=== PATIENT | male | born 1935 | race Caucasian/White ===

== ENCOUNTER 2017-06-14 19:15 | Emergency (ER) | payer MEDICARE, OTHER ==
[2017-06-14 19:25] VITALS: BP 188/85
[2017-06-14] MEDS ORDERED: Acyclovir* 400 MG TAB PO ONE (22:27)
--- NOTE | 2017-06-14 22:29 | ED ---
Skin Complaint - HPI Summary HPI Summary: 82M presents with rash on right flank for a day. It started as a small area and has since spread. He states that he has minimal pain only when it is touched. He denies any new product. He states that he has a vascular rash on his leg. He denies any fever. - History of Current Complaint Chief Complaint: EDRashSkinAbscess Time Seen by Provider: 06/14/17 22:07 Stated Complaint: RASH Pain Intensity: 0 - Allergy/Home Medications Allergies/Adverse Reactions: Allergies Allergy/AdvReac Type Severity Reaction Status Date / Time No Known Allergies Allergy Verified 03/26/14 15:33 PMH/Surg Hx/FS Hx/Imm Hx Endocrine/Hematology History: Reports: Hx Anticoagulant Therapy - plavix, Hx Diabetes, Hx Thyroid Disease Cardiovascular History: Denies: Hx Hypercholesterolemia, Hx Hypertension Respiratory History: Reports: Other Respiratory Problems/Disorders - HX OF PNEUMONIA Denies: Hx Asthma, Hx Chronic Obstructive Pulmonary Disease (COPD) Neurological History: Reports: Hx Dementia Infectious Disease History: No Infectious Disease History: Denies: Traveled Outside the [place] in Last 30 Days - Family History Known Family History: Negative: Cardiac Disease, Hypertension, Diabetes - Social History Alcohol Use: None Substance Use Type: Reports: None Smoking Status (MU): Former Smoker Review of Systems Negative: Fever Negative: Chest Pain Negative: Shortness Of Breath Positive: Rash All Other Systems Reviewed And Are Negative: Yes Physical Exam Triage Information Reviewed: Yes Vital Signs On Initial Exam: Initial Vitals Temp Pulse Resp BP Pulse Ox 97.9 F 97 16 188/85 93 06/14/17 19:22 06/14/17 19:22 06/14/17 19:22 06/14/17 19:22 06/14/17 19:22 Vital Signs Reviewed: Yes Appearance: Positive: Well-Appearing Skin: Positive: Warm, Dry, Other - vesicular rash on one of the dermatome on right side of back to front Head/Face: Positive: Normal Head/Face Inspection Eyes: Positive: Normal, EOMI, DENAE, Conjunctiva Clear ENT: Positive: Normal ENT inspection, Pharynx normal, TMs normal Respiratory/Lung Sounds: Positive: Clear to Auscultation, Breath Sounds Present Cardiovascular: Positive: Normal, RRR Diagnostics - Vital Signs Vital Signs Temp Pulse Resp BP Pulse Ox 06/14/17 19:22 97.9 F 97 16 188/85 93 - Laboratory Lab Statement: Any lab studies that have been ordered have been reviewed, and results considered in the medical decision making process. Course/Dx - Course Course Of Treatment: 82M presents with rash on right flank for a day. It started as a small area and has since spread. He states that he has minimal pain only when it is touched. He denies any new product. He states that he has a vascular rash on his leg. He denies any fever. on exam has vesicular rash on one of the dermatome on right side of back to front consistent with shingles. will treat with valtrex and told to follow up with pcp. patient understands and agrees with plan. - Differential Diagnoses - Skin Complaint Differential Diagnoses: Cellulitis, Contact Dermatitis, Varicella Zoster - Diagnoses Provider Diagnoses: Shingles Discharge - Discharge Plan Condition: Good Disposition: HOME Prescriptions: ValACYclovir (*) [Valtrex 1 GM(*)] 1 gm PO TID #20 tab Patient Education Materials: Shingles (ED) Referrals: Robin Cerda MD [Primary Care Provider] - Additional Instructions: Take Valtrex three times a day for 7 days Follow up with primary within a week Return to ED if develop any new or worsening symptoms
== END 2017-06-14 22:50 | disposition home or self-care (01) ==
LOC: ED 19:15
DX: B02.9 Zoster without complications (principal); R21 Rash and other nonspecific skin eruption; Z87.891 Personal history of nicotine dependence
CPT/HCPCS: 99282; A9270-GY

== ENCOUNTER 2018-02-15 16:38 | Inpatient (IN) | payer MEDICARE, OTHER ==
[2018-02-15 17:36] LABS: INR 1.17 (0.77-1.02)
[2018-02-15 17:37] LABS: ABS Basophils 0.1 10^3/ul (0-0.2); ABS Eosinophils 0 10^3/ul (0-0.6); ABS Lymphocytes 1.3 10^3/ul (1.0-4.8); ABS Monocytes 6.5 10^3/ul (0-0.8); ABS Neutrophils 6.4 10^3/ul (1.5-7.7); ABS Nucleated RBC 0 10^3/ul; Hematocrit 40 % (42-52); Hemoglobin 13.6 g/dl (14.0-18.0); Mean Corpuscular HGB Conc 34 g/dl (31-36); Mean Corpuscular Hemoglobin 32 pg (27-31); Mean Corpuscular Volume 93 fL (80-94); Mean Platelet Volume 9.6 um3 (7.4-10.4); Nucleated Red Blood Cells % 0; Platelet Count 78 10^3/ul (150-450); Red Blood Count 4.24 10^6/ul (4.0-5.4); Red Cell Distribution Width 15 % (10.5-15); White Blood Count 14.4 10^3/ul (3.5-10.8)
--- NOTE | 2018-02-15 17:45 | RAD ---
Indication: Confusion, diabetes. CT brain was performed without IV contrast. Ventricular structures are midline. No midline shift is noted. Central and cortical atrophy is noted. There is no evidence of intracranial mass or hemorrhage. No other high or low density lesions are identified. Mastoid air cells and paranasal sinuses are otherwise unremarkable. IMPRESSION: Atrophy. No evidence of intracranial mass or hemorrhage is noted
--- NOTE | 2018-02-15 17:53 | RAD ---
Indication: Confusion, altered mental status. Single frontal view of the chest performed at 1747 hours was reviewed. Comparison is made with previous exam dated January 14, 2018. No mediastinal shift is noted. Right basilar density is noted may represent atelectasis. Left lung field is clear. IMPRESSION: LIKELY RIGHT BASILAR ATELECTASIS. NO PNEUMONIA IS NOTED.
[2018-02-15 18:40] LABS: Monocytes % 29 % (0-7)
[2018-02-15 19:26] LABS: Urine Appearance Clear; Urine Blood 1+ (Negative); Urine Color Yellow; Urine Ketones Negative (Negative); Urine Protein 2+(100 mg/dL) (Negative); Urine Specific Gravity 1.019 (1.010-1.030); Urine Urobilinogen Negative (Negative)
[2018-02-15] MEDS ORDERED: cefTRIAXone 1 GM IV - ED ONCE IVPB STA ×2 (21:08)
[2018-02-15] MEDS ORDERED: Albuterol 2.5 MG/3 ML NEB.SOL* (0.083%) INH PRN (21:11)
[2018-02-15] MEDS ORDERED: cefTRIAXone(*) 1 GM ADVAN/BAG ONE (21:11)
[2018-02-15] MEDS ORDERED: Azithromycin IV* 500 MG ADVAN VIAL/BAG IVPB ONE (21:11)
[2018-02-15] MEDS ORDERED: Acetaminophen TAB* 325 MG PO PRN (21:11)
[2018-02-15] MEDS ORDERED: Magnesium Sulfate IV* 2 GM in NS 0.9% 100 ML* 100 ML IVPB ONE (21:12)
[2018-02-15] MEDS ORDERED: Ondansetron INJ* 2 MG/ML VIAL IV PRN (21:12)
[2018-02-15] MEDS ORDERED: traMADol TAB* 50 MG PO PRN (21:12)
[2018-02-15] MEDS ORDERED: CMCS Melatonin (NF) 3 MG TAB PO PRN (21:12)
[2018-02-15] MEDS ORDERED: Benzonatate CAP* 100 MG PO PRN (21:13)
[2018-02-15] MEDS ORDERED: NS 0.9% IV SCH (21:15)
--- NOTE | 2018-02-15 21:25 | HP ---
H&P (Free Text) History and Physical: PCP: Imtiaz Cerda MD Date/Time: 02/15/2018 2100 CC: confusion, generalized weakness HPI: Mr Longo is an 83YO male HX CAD, chronic diastolic HF, AFIB, COPD on nightly O2, DVT, solitary kidney, DM2, HTN, HLD who reports going to bed Friday evening in his usual state of health, but awakening Friday AM with generalized weakness & confusion for which he presents. He has been coughing and producing copious phlegm for several days. He does appear mildly confused during the exam, often requiring extended thinking to answer, but answers seem reliable and congruent. He denies F/C, sweats, chest pain, SOB, N/V/D, focal W/N /T, or other issues. PMedHx CAD chronic diastolic HF AFIB COPD on nightly O2 DVT solitary kidney DM2 requiring insulin HTN HLD gout Ambulatory Orders Aspirin EC TAB* [Ecotrin EC Low Dose 81 MG*] 81 mg PO DAILY 02/15/18 Clopidogrel TAB* [Plavix TAB*] 75 mg PO DAILY 02/15/18 Hydrochlorothiazide TAB* [Hydrodiuril TAB*] 25 mg PO DAILY 02/15/18 Insulin NPH Human Isophane [Novolin N Relion] 32 unit SUBCUT QPM 02/15/18 Insulin NPH Human Isophane [Novolin N Relion] 50 unit SUBCUT QAM 02/15/18 Levothyroxine TAB* [Synthroid TAB*] 88 mcg PO DAILY 02/15/18 Losartan TAB* [Cozaar TAB*] 50 mg PO DAILY 02/15/18 Metoprolol Tartrate TAB* [Lopressor TAB*] 100 mg PO DAILY 02/15/18 Oxybutynin TAB* [Ditropan TAB*] 15 mg PO DAILY 02/15/18 Simvastatin TAB(NF) [Zocor(NF)] 20 mg PO DAILY 02/15/18 glipiZIDE TAB.XL* [Glucotrol XL*] 10 mg PO DAILY 02/15/18 Allergies No Known Allergies Allergy (Verified 02/15/18 16:52) SocHx: former smoker, denies alcohol & recreational drugs; lives with his ; full code status FamHx: positive for CAD, PVD, HTN, HLD ROS: as above, otherwise reviewed and all were negative vitals: Vital Signs Temp 37.3 C 02/16/18 03:18 Pulse 72 02/16/18 03:18 Resp 20 02/16/18 03:18 BP 127/51 02/16/18 03:18 Pulse Ox 91 02/16/18 03:18 Intake & Output 02/15/18 02/15/18 02/16/18 11:59 23:59 11:59 Intake Total 100 1250 Balance 100 1250 Weight 113.262 kg Intake: IV Fluids 100 1000 IVPB 250 azithromax 250 Other: # Bowel Movements 2 Estimated Stool Amount Large Constitutional: NAD, normally developed, obese elderly white male HEENM: atraumatic; sclera/conjunctiva: anicteric/clear; hearing: clinically mildly decreased; oropharynx: clear, mucosa tacky Neck: soft tissue: no nuchal rigidity; thyroid: normal Pulmonary: R medial basilar crackles, fair aeration, no accessory muscle use CV: RR/RR, normal S1S2, no carotid bruit, no jugular venous distention, 2+ B DP/ PT, no LE edema Abdominal: soft, non-distended, non-tender, no rebound/guarding/rigidity, normoactive bowel sounds, no hepatosplenomegaly or masses, no costovertebral angle tenderness Musculoskeletal: general: grossly intact, non-tender to palpation Integumental: normal appearance and texture of exposed skin Psychiatric orientation: AA&O to PPS affect: mildly confused mood: pleasant eye contact: good content: seemingly reliable responses: mildly slowed insight: fair Testing: Lab Results 02/15/18 02/15/18 02/15/18 Range/Units 17:16 17:16 17:16 WBC (3.5-10.8) 10^3/ul RBC (4.0-5.4) 10^6/ul Hgb (14.0-18.0) g/dl Hct (42-52) % MCV (80-94) fL MCH (27-31) pg MCHC (31-36) g/dl RDW (10.5-15) % Plt Count (150-450) 10^3/ul MPV (7.4-10.4) um3 Neut % (Auto) Lymph % (Auto) [place] % (Auto) Eos % (Auto) Baso % (Auto) Absolute Neuts (auto) (1.5-7.7) 10^3/ul Absolute Lymphs (auto) (1.0-4.8) 10^3/ul Absolute Monos (auto) (0-0.8) 10^3/ul Absolute Eos (auto) (0-0.6) 10^3/ul Absolute Basos (auto) (0-0.2) 10^3/ul Absolute Nucleated RBC 10^3/ul Immature Gran % (0-9) % Neutrophils % (38-83) % Band Neutrophils % (0-8) % Lymphocytes % (25-47) % Monocytes % (0-7) % Nucleated RBC % Normal RBC Morphology (Normal) Hem Pathologist Commnt INR (Anticoag Therapy) 1.17 H (0.77-1.02) APTT (26.0-36.3) seconds Sodium 137 L (139-145) mmol/L Potassium 4.2 (3.5-5.0) mmol/L Chloride 101 (101-111) mmol/L Carbon Dioxide 28 (22-32) mmol/L Anion Gap 8 (2-11) mmol/L BUN 25 H (6-24) mg/dL Creatinine 1.55 H (0.67-1.17) mg/dL Est GFR ( Amer) 55.3 (>60) Est GFR (Non-Af Amer) 43.0 (>60) BUN/Creatinine Ratio 16.1 (8-20) Glucose 288 H (70-100) mg/dL Lactic Acid (0.5-2.0) mmol/L Calcium 9.2 (8.6-10.3) mg/dL Magnesium 1.7 L (1.9-2.7) mg/dL Total Bilirubin 0.70 (0.2-1.0) mg/dL AST 11 L (13-39) U/L ALT 13 (7-52) U/L Alkaline Phosphatase 47 (34-104) U/L Ammonia 46 (16-53) mcmol/L Total Creatine Kinase 66 (10-223) U/L Troponin I 0.04 H* (<0.04) ng/mL Total Protein 7.3 (6.4-8.9) g/dL Albumin 3.7 (3.2-5.2) g/dL Globulin 3.6 (2-4) g/dL Albumin/Globulin Ratio 1.0 (1-3) TSH 0.47 (0.34-5.60) mcIU/mL Urine Color Urine Appearance Urine pH (5-9) Ur Specific Dietrich (1.010-1.030) Urine Protein (Negative) Urine Ketones (Negative) Urine Blood (Negative) Urine Nitrate (Negative) Urine Bilirubin (Negative) Urine Urobilinogen (Negative) Ur Leukocyte Esterase (Negative) Urine WBC (Auto) (Absent) Urine RBC (Auto) (Absent) Ur Squamous Epith Cells (Absent) Urine Bacteria (Absent) Urine Glucose (Negative) Salicylates < 2.50 (<30) mg/dL Urine Opiates Screen (None Detect) Acetaminophen < 15 mcg/mL Ur Barbiturates Screen (None Detect) Ur Phencyclidine Scrn (None Detect) Ur Amphetamines Screen (None Detect) U Benzodiazepines Scrn (None Detect) Urine Cocaine Screen (None Detect) U Cannabinoids Screen (None Detect) Serum Alcohol < 10 (<10) mg/dL Influenza A (Rapid) (Negative) Influenza B (Rapid) (Negative) 02/15/18 02/15/18 02/15/18 Range/Units 17:16 17:16 17:46 WBC 14.4 H (3.5-10.8) 10^3/ul RBC 4.24 (4.0-5.4) 10^6/ul Hgb 13.6 L (14.0-18.0) g/dl Hct 40 L (42-52) % MCV 93 (80-94) fL MCH 32 H (27-31) pg MCHC 34 (31-36) g/dl RDW 15 (10.5-15) % Plt Count 78 L (150-450) 10^3/ul MPV 9.6 (7.4-10.4) um3 Neut % (Auto) Not Reportable Lymph % (Auto) Not Reportable [place] % (Auto) Not Reportable Eos % (Auto) Not Reportable Baso % (Auto) Not Reportable Absolute Neuts (auto) 6.4 (1.5-7.7) 10^3/ul Absolute Lymphs (auto) 1.3 (1.0-4.8) 10^3/ul Absolute Monos (auto) 6.5 H (0-0.8) 10^3/ul Absolute Eos (auto) 0 (0-0.6) 10^3/ul Absolute Basos (auto) 0.1 (0-0.2) 10^3/ul Absolute Nucleated RBC 0 10^3/ul Immature Gran % 1 (0-9) % Neutrophils % 56 (38-83) % Band Neutrophils % 1 (0-8) % Lymphocytes % 11 L (25-47) % Monocytes % 29 H (0-7) % Nucleated RBC % 0 Normal RBC Morphology Normal (Normal) Hem Pathologist Commnt Pending INR (Anticoag Therapy) (0.77-1.02) APTT (26.0-36.3) seconds Sodium (139-145) mmol/L Potassium (3.5-5.0) mmol/L Chloride (101-111) mmol/L Carbon Dioxide (22-32) mmol/L Anion Gap (2-11) mmol/L BUN (6-24) mg/dL Creatinine (0.67-1.17) mg/dL Est GFR ( Amer) (>60) Est GFR (Non-Af Amer) (>60) BUN/Creatinine Ratio (8-20) Glucose (70-100) mg/dL Lactic Acid 1.5 (0.5-2.0) mmol/L Calcium (8.6-10.3) mg/dL Magnesium (1.9-2.7) mg/dL Total Bilirubin (0.2-1.0) mg/dL AST (13-39) U/L ALT (7-52) U/L Alkaline Phosphatase (34-104) U/L Ammonia (16-53) mcmol/L Total Creatine Kinase (10-223) U/L Troponin I (<0.04) ng/mL Total Protein (6.4-8.9) g/dL Albumin (3.2-5.2) g/dL Globulin (2-4) g/dL Albumin/Globulin Ratio (1-3) TSH (0.34-5.60) mcIU/mL Urine Color Urine Appearance Urine pH (5-9) Ur Specific Dietrich (1.010-1.030) Urine Protein (Negative) Urine Ketones (Negative) Urine Blood (Negative) Urine Nitrate (Negative) Urine Bilirubin (Negative) Urine Urobilinogen (Negative) Ur Leukocyte Esterase (Negative) Urine WBC (Auto) (Absent) Urine RBC (Auto) (Absent) Ur Squamous Epith Cells (Absent) Urine Bacteria (Absent) Urine Glucose (Negative) Salicylates (<30) mg/dL Urine Opiates Screen (None Detect) Acetaminophen mcg/mL Ur Barbiturates Screen (None Detect) Ur Phencyclidine Scrn (None Detect) Ur Amphetamines Screen (None Detect) U Benzodiazepines Scrn (None Detect) Urine Cocaine Screen (None Detect) U Cannabinoids Screen (None Detect) Serum Alcohol (<10) mg/dL Influenza A (Rapid) Negative (Negative) Influenza B (Rapid) Negative (Negative) 02/15/18 02/15/18 02/15/18 Range/Units 18:47 18:47 21:58 WBC (3.5-10.8) 10^3/ul RBC (4.0-5.4) 10^6/ul Hgb (14.0-18.0) g/dl Hct (42-52) % MCV (80-94) fL MCH (27-31) pg MCHC (31-36) g/dl RDW (10.5-15) % Plt Count (150-450) 10^3/ul MPV (7.4-10.4) um3 Neut % (Auto) Lymph % (Auto) [place] % (Auto) Eos % (Auto) Baso % (Auto) Absolute Neuts (auto) (1.5-7.7) 10^3/ul Absolute Lymphs (auto) (1.0-4.8) 10^3/ul Absolute Monos (auto) (0-0.8) 10^3/ul Absolute Eos (auto) (0-0.6) 10^3/ul Absolute Basos (auto) (0-0.2) 10^3/ul Absolute Nucleated RBC 10^3/ul Immature Gran % (0-9) % Neutrophils % (38-83) % Band Neutrophils % (0-8) % Lymphocytes % (25-47) % Monocytes % (0-7) % Nucleated RBC % Normal RBC Morphology (Normal) Hem Pathologist Commnt INR (Anticoag Therapy) (0.77-1.02) APTT (26.0-36.3) seconds Sodium (139-145) mmol/L Potassium (3.5-5.0) mmol/L Chloride (101-111) mmol/L Carbon Dioxide (22-32) mmol/L Anion Gap (2-11) mmol/L BUN (6-24) mg/dL Creatinine (0.67-1.17) mg/dL Est GFR ( Amer) (>60) Est GFR (Non-Af Amer) (>60) BUN/Creatinine Ratio (8-20) Glucose (70-100) mg/dL Lactic Acid (0.5-2.0) mmol/L Calcium (8.6-10.3) mg/dL Magnesium (1.9-2.7) mg/dL Total Bilirubin (0.2-1.0) mg/dL AST (13-39) U/L ALT (7-52) U/L Alkaline Phosphatase (34-104) U/L Ammonia (16-53) mcmol/L Total Creatine Kinase (10-223) U/L Troponin I (<0.04) ng/mL Total Protein (6.4-8.9) g/dL Albumin (3.2-5.2) g/dL Globulin (2-4) g/dL Albumin/Globulin Ratio (1-3) TSH (0.34-5.60) mcIU/mL Urine Color Yellow Urine Appearance Clear Urine pH 5.0 (5-9) Ur Specific Dietrich 1.019 (1.010-1.030) Urine Protein 2+(100 mg/dl) A (Negative) Urine Ketones Negative (Negative) Urine Blood 1+ A (Negative) Urine Nitrate Negative (Negative) Urine Bilirubin Negative (Negative) Urine Urobilinogen Negative (Negative) Ur Leukocyte Esterase Negative (Negative) Urine WBC (Auto) Trace(0-5/hpf) (Absent) Urine RBC (Auto) Absent (Absent) Ur Squamous Epith Cells Present A (Absent) Urine Bacteria Absent (Absent) Urine Glucose 1+(50 mg/dl) A (Negative) Salicylates (<30) mg/dL Urine Opiates Screen None detected (None Detect) Acetaminophen mcg/mL Ur Barbiturates Screen None detected (None Detect) Ur Phencyclidine Scrn None detected (None Detect) Ur Amphetamines Screen None detected (None Detect) U Benzodiazepines Scrn None detected (None Detect) Urine Cocaine Screen None detected (None Detect) U Cannabinoids Screen None detected (None Detect) Serum Alcohol (<10) mg/dL Influenza A (Rapid) Negative (Negative) Influenza B (Rapid) Negative (Negative) 02/15/18 02/15/18 Range/Units 22:18 22:18 WBC (3.5-10.8) 10^3/ul RBC (4.0-5.4) 10^6/ul Hgb (14.0-18.0) g/dl Hct (42-52) % MCV (80-94) fL MCH (27-31) pg MCHC (31-36) g/dl RDW (10.5-15) % Plt Count (150-450) 10^3/ul MPV (7.4-10.4) um3 Neut % (Auto) Lymph % (Auto) [place] % (Auto) Eos % (Auto) Baso % (Auto) Absolute Neuts (auto) (1.5-7.7) 10^3/ul Absolute Lymphs (auto) (1.0-4.8) 10^3/ul Absolute Monos (auto) (0-0.8) 10^3/ul Absolute Eos (auto) (0-0.6) 10^3/ul Absolute Basos (auto) (0-0.2) 10^3/ul Absolute Nucleated RBC 10^3/ul Immature Gran % (0-9) % Neutrophils % (38-83) % Band Neutrophils % (0-8) % Lymphocytes % (25-47) % Monocytes % (0-7) % Nucleated RBC % Normal RBC Morphology (Normal) Hem Pathologist Commnt INR (Anticoag Therapy) (0.77-1.02) APTT 29.0 (26.0-36.3) seconds Sodium (139-145) mmol/L Potassium (3.5-5.0) mmol/L Chloride (101-111) mmol/L Carbon Dioxide (22-32) mmol/L Anion Gap (2-11) mmol/L BUN 26 H (6-24) mg/dL Creatinine 1.53 H (0.67-1.17) mg/dL Est GFR ( Amer) 56.2 (>60) Est GFR (Non-Af Amer) 43.7 (>60) BUN/Creatinine Ratio (8-20) Glucose (70-100) mg/dL Lactic Acid (0.5-2.0) mmol/L Calcium (8.6-10.3) mg/dL Magnesium (1.9-2.7) mg/dL Total Bilirubin (0.2-1.0) mg/dL AST (13-39) U/L ALT (7-52) U/L Alkaline Phosphatase (34-104) U/L Ammonia (16-53) mcmol/L Total Creatine Kinase (10-223) U/L Troponin I 0.04 H* (<0.04) ng/mL Total Protein (6.4-8.9) g/dL Albumin (3.2-5.2) g/dL Globulin (2-4) g/dL Albumin/Globulin Ratio (1-3) TSH (0.34-5.60) mcIU/mL Urine Color Urine Appearance Urine pH (5-9) Ur Specific Dietrich (1.010-1.030) Urine Protein (Negative) Urine Ketones (Negative) Urine Blood (Negative) Urine Nitrate (Negative) Urine Bilirubin (Negative) Urine Urobilinogen (Negative) Ur Leukocyte Esterase (Negative) Urine WBC (Auto) (Absent) Urine RBC (Auto) (Absent) Ur Squamous Epith Cells (Absent) Urine Bacteria (Absent) Urine Glucose (Negative) Salicylates (<30) mg/dL Urine Opiates Screen (None Detect) Acetaminophen mcg/mL Ur Barbiturates Screen (None Detect) Ur Phencyclidine Scrn (None Detect) Ur Amphetamines Screen (None Detect) U Benzodiazepines Scrn (None Detect) Urine Cocaine Screen (None Detect) U Cannabinoids Screen (None Detect) Serum Alcohol (<10) mg/dL Influenza A (Rapid) (Negative) Influenza B (Rapid) (Negative) ECG, personally reviewed: NSR rate 74, no ischemia CXR, personally reviewed: read as: IMPRESSION: LIKELY RIGHT BASILAR ATELECTASIS. NO PNEUMONIA IS NOTED; however, to my eye there is a new RLL infiltrate compared to 12/[address] brain WO, personally reviewed: IMPRESSION: Atrophy. No evidence of intracranial mass or hemorrhage is noted Impression: 83M HX CAD, chronic diastolic HF, AFIB, COPD on nightly O2, DVT, solitary kidney, DM2, HTN, HLD presenting with generalized weakness found to have interval development of a RLL infiltrate, WBCs of 14k, & tachypnea in the 30s associated with productive cough DIAGNOSIS & PLAN Primary sepsis 2nd RLL pneumonia : ordered 30cc/kg IVF bolus : ordered azithromycin & ceftraxone IV : ordered blood & sputum CXs : urine S pneumo & Legionella antigens : rapid influenza ordered, negative : supplemental oxygen : supportive care Secondary CAD : continue aspirin, clopidogrel chronic diastolic HF : monitor for respiratory issues related to IVFs : update ECHO : strict I&Os : daily weights AFIB : not on anticoagulation : currently in NSR COPD on nightly O2 : supplemental oxygen as above : PRN albuterol HX DVT : SCDs & heparin SQ solitary kidney : 2nd donor nephrectomy to son DM2 requiring insulin : continue glargine & glipizide : check A1c : basal/bolus/correctional insulin HTN : hold HCTZ : continue losartan & metoprolol HLD : continue simvastatin hypothyroidism : continue levothyroxine gout OAB : continue oxybutynin Admission Rational: inpatient for sepsis 2nd RLL pneumonia requiring IVFs & IV ABX; inappropriate for outpatient setting DVTp: heparin SQ & SCDs Code Status: full HCP:
[2018-02-15] MEDS: NS 0.9% 1000 ML* 1,000 ML IV SCH (22:30)
--- NOTE | 2018-02-15 22:33 | ED ---
Oliver Desir Stephanie, scribed for Eli Martines MD on 02/15/18 at 1732 . Neurological HPI - HPI Summary HPI Summary: The pt is an 83 y/o M presenting to the ED with c/o confusion that began this morning when he woke up. Per , symptoms include decreased urination, cough and decreased energy. Per , the pt awoke this morning and got dressed for work but was unaware that it was Friday and he was unsure of why he got ready for work. The pt was confused on how to use his glucometer. His glucose was recorded as 354. The pt is on home O2 at night. She states he is taking longer than usual to respond to questions. The pt slept all day. The pt is on novolin, Plavix and aspirin. He is able to ambulate usually without assistance and today was very weak and slow in his movements. Of note, pt has a single kidney because he donated a kidney to his son who had spina bifida and later of other causes. - History of Current Complaint Chief Complaint: EDAltMentalStatus Stated Complaint: LETHARGIC Time Seen by Provider: 02/15/18 17:05 Hx Obtained From: Patient, Family/Career Technical Supervisor - Onset/Duration: Sudden Onset, Resolved Timing: Constant Onset Severity: Severe Current Severity: Mild Neurological Deficit Location: Generalized Pain Intensity: 0 Pain Scale Used: 0-10 Numeric Character: Motor Weakness - bilateral legs, Confusion, Lethargy, Responsiveness - decreased Aggravating: Nothing Alleviating: Nothing Associated Signs and Symptoms: Positive: Confusion TPA Considered: No - Allergy/Home Medications Allergies/Adverse Reactions: Allergies Allergy/AdvReac Type Severity Reaction Status Date / Time No Known Allergies Allergy Verified 02/15/18 16:52 Home Medications: Home Medications Aspirin EC TAB* [Ecotrin EC Low Dose 81 MG*] 81 mg PO DAILY 02/15/18 [History Confirmed 02/15/18] Clopidogrel TAB* [Plavix TAB*] 75 mg PO DAILY 02/15/18 [History Confirmed ] Hydrochlorothiazide TAB* [Hydrodiuril TAB*] 25 mg PO DAILY 02/15/18 [History Confirmed 02/15/18] Insulin NPH Human Isophane [Novolin N Relion] 32 unit SUBCUT QPM 02/15/18 [ History Confirmed 02/15/18] Insulin NPH Human Isophane [Novolin N Relion] 50 unit SUBCUT QAM 02/15/18 [ History Confirmed 02/15/18] Levothyroxine TAB* [Synthroid TAB*] 88 mcg PO DAILY 02/15/18 [History Confirmed 02/15/18] Losartan TAB* [Cozaar TAB*] 50 mg PO DAILY 02/15/18 [History Confirmed 02/15/18] Metoprolol Tartrate TAB* [Lopressor TAB*] 100 mg PO DAILY 02/15/18 [History Confirmed 02/15/18] Oxybutynin TAB* [Ditropan TAB*] 15 mg PO DAILY 02/15/18 [History Confirmed 02/15] Simvastatin TAB(NF) [Zocor(NF)] 20 mg PO DAILY 02/15/18 [History Confirmed 02/15] glipiZIDE TAB.XL* [Glucotrol XL*] 10 mg PO DAILY 02/15/18 [History Confirmed ] PMH/Surg Hx/FS Hx/Imm Hx Endocrine/Hematology History: Reports: Hx Anticoagulant Therapy - plavix, Hx Diabetes, Hx Thyroid Disease Cardiovascular History: Reports: Hx Atrial Fibrillation Denies: Hx Hypercholesterolemia, Hx Hypertension Respiratory History: Reports: Hx Pneumonia Denies: Hx Asthma, Hx Chronic Obstructive Pulmonary Disease (COPD) History: Reports: Hx Chronic Renal Failure, Other Problems/Disorders - 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 EENT History: Denies: Hx Deafness - Surgical History Surgery Procedure, Year, and Place: kidney removal- donor Infectious Disease History: No Infectious Disease History: Denies: Traveled Outside the [place] in Last 30 Days - Family History Known Family History: Positive: Other - spina bifida in his son Negative: Cardiac Disease, Hypertension, Diabetes - Social History Occupation: Retired Lives: With Family Alcohol Use: None Substance Use Type: Reports: None Hx Tobacco Use: Yes Smoking Status (MU): Former Smoker Have You Smoked in the Last Year: No Review of Systems Positive: Fatigue, Other - decreased urination. Negative: Fever Eyes: Negative Cardiovascular: Negative Positive: Cough Gastrointestinal: Negative Positive: frequency - decreased Skin: Negative Neurological: Other - confusion Positive: Weakness - generalized Psychological: Other - calm, cooperative All Other Systems Reviewed And Are Negative: Yes Physical Exam - Summary Physical Exam Summary: Appearance: Ill-appearing, moderate pain distress, obese, answers questions appropriately Skin: Warm, color reflects adequate perfusion Head: Normal Head/Face inspection, atraumatic Eyes: Conjunctiva clear ENT: Normal inspection Neck: Supple, no nodes, no JVD. Respiratory: Lungs clear, Normal breath sounds, no respiratory distress, frequent congested cough upon exam Cardio: RRR, No murmur, pulses normal, brisk capillary refill Abdomen: soft, nontender, no masses Bowel sounds: present Musculoskeletal: Strength Intact/ ROM intact. No calf tenderness. No edema. Psychological: Normal Neuro: Alert, muscle tone normal, no focal deficit, A&O x3, CN II-XII intact , Motor function 5/5, Sensation intact, reflexes absent, normal heel to swenson bilaterally Triage Information Reviewed: Yes Vital Signs On Initial Exam: Initial Vitals Temp Pulse Resp BP Pulse Ox 99.2 F 92 19 151/58 94 02/15/18 16:53 02/15/18 16:53 02/15/18 16:53 02/15/18 16:53 02/15/18 16:53 Vital Signs Reviewed: Yes Diagnostics - Vital Signs Vital Signs Temp Pulse Resp BP Pulse Ox 02/15/18 17:19 95 02/15/18 17:06 83 31 169/86 91 02/15/18 17:05 81 16 93 02/15/18 16:53 99.2 F 92 19 151/58 94 - Laboratory Result Diagrams: 02/16/18 05:52 02/16/18 05:52 Lab Statement: Any lab studies that have been ordered have been reviewed, and results considered in the medical decision making process. - Radiology CXR Xray Interpretation: Positive (See Comments) Radiology Interpretation Completed By: Radiologist - LIKELY RIGHT BASILAR ATELECTASIS. NO PNEUMONIA IS NOTED. ED physician has reviewed this report. - CT Brain CT Interpretation: No Acute Changes CT Interpretation Completed By: Radiologist - Atrophy. No evidence of intracranial mass or hemorrhage is noted. ED physician has reviewed this report. - EKG 18:07 Cardiac Rate: NL EKG Rhythm: Sinus Rhythm - [address] Segment: Non-Specific Ectopy: None EKG Interpretation: nml AVIVCT, nml QTc, and nml axis. No acute changes. EKG Comparison: No Significant Change - 09/29/16 Re-Evaluation - Re-Evaluation First Eval Re-Evaluation Time: 18:50 Change: Unchanged - ED physician discussed the plan of admission with the pt and the pt understands and agrees. present also agrees. Course/Dx - Course Course Of Treatment: At 18:31, ED physician is aware of the pt's elevated troponin. EKG is not a STEMI. Suspect demand ischemia. Pt had labs, CXR and CT brain to eval for altered mental status. Pt with glucose in poor control but this is not enough to account for altered mental status. No evidence of acute stroke. Pt admitted for further evaluation and treatment. - Differential Dx Differential Diagnoses Neuro: Positive: Cerebrovascular Accident, Dysrhythmia, Metabolic Abnormality, Transient Ischemic Attack, Other - sepsis, pneumonia - Diagnoses Provider Diagnoses: Thrombocytopenia, Altered mental status, Elevated troponin, Leukocytosis - Physician Notifications Discussed Care Of Patient With: Anna Herrera Time Discussed With Above Provider: 18:48 Instructed by Provider To: Admit As Inpatient Discharge - Sign-Out/Discharge Documenting (check all that apply): Discharge/Admit/Transfer - admit - Discharge Plan Condition: Stable Disposition: ADMITTED TO [facility] - Billing Disposition and Condition Condition: STABLE [place] [facility] [place] The documentation as recorded by the Oliver goodrich Stephanie accurately reflects the service I personally performed and the decisions made by , Eli Martines MD.
[2018-02-15] MEDS: Azithromycin IV(*) 500 MG in NS 0.9% 250 ML* 250 ML IVPB SCH (22:40)
[2018-02-15 22:55] LABS: EGFR Non-African American 43.7 (>60)
[2018-02-16] MEDS ORDERED: NS 0.9% 100 ML* 0 ML ONE (00:53)
[2018-02-16] MEDS: guaiFENesin ER TAB 600 MG PO SCH ×3 (00:54→20:20)
[2018-02-16] MEDS ORDERED: Magnesium Sulfate 2 GM IV* 2 GM/50 ML BAG IV ONE (02:00)
[2018-02-16] MEDS: Heparin VIAL(*) 5000 UNITS/ML VIAL (FIVE THOUSAND) SUBCUT SCH ×3 (05:55→22:13)
[2018-02-16] MEDS: Levothyroxine TAB* 88 MCG TAB PO SCH (05:55)
[2018-02-16] MEDS: CMCS Pantoprazole TAB (NF) 40 MG TAB PO SCH (05:55)
[2018-02-16 06:59] LABS: EGFR Non-African American 42.7 (>60)
[2018-02-16 07:21] LABS: Hematocrit 36 % (42-52); Hemoglobin 12.3 g/dl (14.0-18.0); Mean Corpuscular HGB Conc 34 g/dl (31-36); Mean Corpuscular Hemoglobin 32 pg (27-31); Mean Corpuscular Volume 94 fL (80-94); Mean Platelet Volume 9.7 um3 (7.4-10.4); Platelet Count 70 10^3/ul (150-450); Red Blood Count 3.85 10^6/ul (4.0-5.4); Red Cell Distribution Width 15 % (10.5-15); White Blood Count 12.3 10^3/ul (3.5-10.8)
[2018-02-16 07:24] LABS: ABS Basophils 0 10^3/ul (0-0.2); ABS Eosinophils 0 10^3/ul (0-0.6); ABS Lymphocytes 1.7 10^3/ul (1.0-4.8); ABS Monocytes 5.5 10^3/ul (0-0.8); ABS Neutrophils 5.1 10^3/ul (1.5-7.7)
[2018-02-16 07:27] LABS: Monocytes % 37 % (0-7)
[2018-02-16] MEDS ORDERED: Dextrose 50% Syringe 50 ML* 25 GM/50 ML SYRINGE IV PUSH PRN (08:30)
[2018-02-16] MEDS ORDERED: Insulin LISPRO* 1 UNITS UNIT SUBCUT ONE (08:55)
[2018-02-16] MEDS: Aspirin EC TAB* 81 MG TAB.EC PO SCH (09:16)
[2018-02-16] MEDS: Metoprolol Tartrate TAB* 100 MG TAB PO SCH (09:17)
[2018-02-16] MEDS: Docusate CAP* 100 MG PO SCH ×2 (09:18→20:20)
[2018-02-16] MEDS: Clopidogrel TAB* 75 MG PO SCH (09:19)
[2018-02-16] MEDS: Atorvastatin* 10 MG TAB PO SCH (09:19)
[2018-02-16] MEDS: glipiZIDE TAB.XL* 5 MG PO SCH (09:19)
[2018-02-16] MEDS: Losartan TAB* 25 MG PO SCH (09:20)
[2018-02-16] MEDS: Oxybutynin XL TAB* 5 MG PO SCH (09:21)
[2018-02-16] MEDS: Insulin LISPRO* 1 UNITS UNIT SUBCUT SCH ×5 (09:24→20:53)
[2018-02-16] MEDS: Insulin NPH(*) 1 UNITS UNIT SUBCUT SCH (09:29)
--- NOTE | 2018-02-16 11:37 | ECHO ---
Patient: SUMANTH GOMEZ Rec#: [id number] : 1935 Date: 02/16/2018 Age: 83y Height: 180.34 cm / 71.0 in Weight: 122.47 kg / 269.9 lbs Sex: M BSA: 2.4 Room#: [facility] Admit Date#: 02/15/2018 Type: Inpatient Referring: Erick Ibanez MD Reading: Savage Salazar MD Obstetrics Gynecology Md: Olga Mcgrath,RDCS,RDMS CC: Robin Cerda MD Transthoracic Echocardiogram Indication: SOB BP: 127/51 HR: 72 Rhythm: NSR Findings History: CAD, GA, PCI, CHF, AFIB, DM, HTN, HLD, DVT, CKD Technical Comments: The study quality is good. Left Ventricle: The left ventricular chamber size is normal. Moderate concentric left ventricular hypertrophy is observed. Global left ventricular wall motion and contractility are within normal limits. There is normal left ventricular systolic function. The estimated ejection fraction is 55-60%. Abnormal left ventricular diastolic function is observed. Left Atrium: The left atrium is mildly dilated. Right Ventricle: The right ventricular chamber size and systolic function are within normal limits. Right Atrium: The right atrial cavity size is normal. Aortic Valve: The aortic valve is trileaflet. The aortic valve leaflets are mildly thickened. There is aortic annular calcification. There is a trace of aortic regurgitation. There is borderline aortic stenosis present. Mitral Valve: The mitral valve leaflets are mildly thickened. There is a trace of mitral regurgitation. There is no evidence of mitral stenosis. Tricuspid Valve: The tricuspid valve leaflets are normal. There is trace tricuspid regurgitation. Unable to estimate the right ventricular systolic pressure. Pulmonic Valve: There is no evidence of pulmonic valve thickening. There is a trace pulmonic regurgitation. Pericardium: There is no significant pericardial effusion. Aorta: There is mild dilatation of the ascending aorta. The aortic arch is not well visualized. The aortic root is normal in size. Pulmonary Artery: The main pulmonary artery is not well visualized. Venous: The inferior vena cava is dilated. There is less than 50% respiratory change in the inferior vena cava dimension. Summary: There are no significant changes when compared to the previous study done on 02/18/10 Conclusions Global left ventricular wall motion and contractility are within normal limits. There is normal left ventricular systolic function. The estimated ejection fraction is 55-60%. The right ventricular chamber size and systolic function are within normal limits. There is a trace of aortic regurgitation. There is a trace of mitral regurgitation. There is trace tricuspid regurgitation. Unable to estimate the right ventricular systolic pressure. There is no significant pericardial effusion. There are no significant changes when compared to the previous study done on 02/18/10 Measurements Name Value Normal Range RVIDd (AP) 2D 3.5 cm (0.9 - 2.6) RVDdMajor (2D) 4.1 cm (2.2 - 4.4) RAd ISD 4CH 4.9 cm (3.4 - 4.9) RA (A4C)W 3.9 cm (2.9 - 4.6) IVSd (2D) 1.6 cm (0.6 - 1) LVPWd (2D) 1.6 cm (0.6 - 1) LVIDd (2D) 4 cm (3.6 - 5.4) LVIDs (2D) 3 cm - LV FS (2D) 25 % (25 - 45) Aortic Annulus 2.2 cm (1.4 - 2.6) Ao root diameter (2D) 3.4 cm (2.1 - 3.5) Ascending Ao 3.7 cm (2.1 - 3.4) LA dimension (AP) 2D 4.3 cm (2.3 - 3.8) LAd ISD 4CH 5.6 cm (2.9 - 5.3) LA ISD 4CH W 4.2 cm (2.5 - 4.5) Name Value Normal Range LA ESV SP 4CH (A/L) 59.21 ml - LA ESV SP 2CH (A/L) 72.47 ml - LA ESV BP (A/L) 68.61 ml - LA ESV BP (A/L) index 29 ml/m2 - LA ESV SP 4CH (MOD) 55.72 ml - LA ESV SP 2CH (MOD) 68.68 ml - Name Value Normal Range MV E-wave Vmax 0.9 m/sec - MV deceleration time 242 msec - MV A-wave Vmax 0.6 m/sec - MV E:A ratio 1.5 ratio - P. vein S-wave Vmax 0.7 m/sec - P. vein D-wave Vmax 0.5 m/sec - P. vein S:D Vmax ratio 1.4 ratio - P. vein A-wave duration 131.5 msec - LV septal e' Vmax 0.06 m/sec - LV lateral e' Vmax 0.07 m/sec - LV E:e' septal ratio 15 ratio - LV E:e' lateral ratio 13 ratio - Name Value Normal Range AV Vmax 1.7 m/sec - AV VTI 38 cm - AV peak gradient 11.6 mmHg - AV mean gradient 6.2 mmHg - LVOT diameter 2 cm - LVOT Vmax 1.1 m/sec - LVOT VTI 27 cm - LVOT peak gradient 5 mmHg - LVOT mean gradient 2.5 mmHg - FRANK (continuity Vmax) 2 cm2 - FRANK (continuity VTI) 2.2 cm2 - Name Value Normal Range RAP 8 mmHg - IVC diameter 2.3 cm - Name Value Normal Range PV Vmax 0.6 m/sec - PV peak gradient 1.6 mmHg -
--- NOTE | 2018-02-16 11:46 | PN ---
Subjective Date of Service: 02/16/18 Interval History: Pt's confusion resolved. Stated that he had "3 pneumonias" this winter. Had been coughing for several weeks. Yesterday he was so weak he couldn't walk Objective Active Medications: Acetaminophen (Tylenol Tab*) 650 mg PO Q6H PRN PRN Reason: FEVER/PAIN Albuterol (Ventolin 2.5 Mg/3 Ml Neb.Daksha*) 2.5 mg INH Q2H PRN PRN Reason: SOB/WHEEZING Aspirin (Aspirin Ec Tab*) 81 mg PO DAILY [facility] Last Admin: 02/16/18 09:16 Dose: 81 mg Atorvastatin Calcium (Lipitor*) 10 mg PO DAILY [facility] Last Admin: 02/16/18 09:19 Dose: 10 mg Benzonatate (Tessalon Cap*) 100 mg PO BID PRN PRN Reason: COUGH Last Admin: 02/15/18 22:30 Dose: 100 mg Clopidogrel Bisulfate (Plavix Tab*) 75 mg PO DAILY [facility] Last Admin: 02/16/18 09:19 Dose: 75 mg Dextrose (D50w Syringe 50 Ml*) 12.5 gm IV PUSH .FOR FS < 60 - SS PRN PRN Reason: FS < 60 Docusate Sodium (Colace Cap*) 200 mg PO BID [facility] Last Admin: 02/16/18 09:18 Dose: 200 mg Glipizide (Glucotrol Xl*) 10 mg PO DAILY [facility] Last Admin: 02/16/18 09:19 Dose: 10 mg Guaifenesin (Mucinex*) 1,200 mg PO BID [facility] Last Admin: 02/16/18 09:22 Dose: 1,200 mg Heparin Sodium (Porcine) (Heparin Vial(*)) 5,000 units SUBCUT Q8HR [facility] Last Admin: 02/16/18 05:55 Dose: 5,000 units Sodium Chloride (Ns 0.9% 1000 Ml*) 1,000 mls @ 100 mls/hr IV PER RATE [facility] Last Admin: 02/15/18 22:30 Dose: 100 mls/hr Ceftriaxone Sodium 1,000 mg/ (Sodium Chloride) 50 mls @ 200 mls/hr IVPB Q24H [facility] Azithromycin 500 mg/ Sodium (Chloride) 250 mls @ 250 mls/hr IVPB Q24H [facility] Last Admin: 02/15/18 22:40 Dose: 250 mls/hr Insulin Human Lispro (Humalog*) 0 units SUBCUT ACHS [facility] PRN Reason: Protocol Last Admin: 02/16/18 09:24 Dose: 4 units Insulin Human NPH (Insulin Nph(*)) 32 units SUBCUT QPM [facility] Insulin Human NPH (Insulin Nph(*)) 50 units SUBCUT QAM [facility] Last Admin: 02/16/18 09:29 Dose: 50 units Levothyroxine Sodium (Synthroid Tab*) 88 mcg PO 0600 [facility] Last Admin: 02/16/18 05:55 Dose: 88 mcg Losartan Potassium (Cozaar Tab*) 50 mg PO DAILY [facility] Last Admin: 02/16/18 09:20 Dose: 50 mg Melatonin (Melatonin (Nf)) 3 mg PO BEDTIME PRN; Protocol PRN Reason: Sleep Metoprolol Tartrate (Lopressor Tab*) 100 mg PO DAILY [facility] Last Admin: 02/16/18 09:17 Dose: 100 mg Ondansetron HCl (Zofran Inj*) 4 mg IV Q6H PRN PRN Reason: NAUSEA Oxybutynin Chloride (Ditropan Xl Tab*) 15 mg PO DAILY [facility] Last Admin: 02/16/18 09:21 Dose: 15 mg Pantoprazole Sodium (Protonix Tab (Nf)) 40 mg PO DAILY@0600 [facility] Last Admin: 02/16/18 05:55 Dose: 40 mg Tramadol HCl (Ultram*) 50 mg PO Q6H PRN PRN Reason: PAIN Vital Signs - 8 hr 02/16/18 02/16/18 07:09 08:18 Temperature 98.8 F Pulse Rate 72 Respiratory 22 16 Rate Blood Pressure 150/61 (mmHg) O2 Sat by Pulse 93 Oximetry Oxygen Devices in Use Now: None Appearance: 83 yo M in nAD, AAOx3 Eyes: No Scleral Icterus, PERRLA Ears/Nose/Mouth/Throat: NL Teeth, Lips, Gums, Mucous Membranes Moist Neck: NL Appearance and Movements; NL JVP, Trachea Midline Respiratory: Symmetrical Chest Expansion and Respiratory Effort, - - rhonchi at b/l bases Cardiovascular: NL Sounds; No Murmurs; No JVD, RRR Abdominal: NL Sounds; No Tenderness; No Distention, No Hepatosplenomegaly Lymphatic: No Cervical Adenopathy Extremities: No Edema, No Clubbing, Cyanosis Skin: No Rash or Ulcers, No Nodules or Sclerosis Neurological: Alert and Oriented x 3, NL Muscle Strength and Tone Result Diagrams: 02/16/18 05:52 02/16/18 05:52 Microbiology and Other Data: Microbiology 02/15/18 21:36 Legionella Urinary Antigen - Final Urine Negative Legionella Antigen Streptococcus pneumoniae Ag Screen - Final Negative S. pneumo Antigen 02/15/18 21:36 Influenza Types A,B Antigen ([place]) - Final Nasopharyngeal Specimen received for Influenza A/B Molecular testing Assess/Plan/Problems-Billing Assessment: 83 yo M with h/o PAF(not anticoagulated), solitary kidney, DM, CKD stage3 presents with weakness, confusion and cough - Patient Problems (1) Community acquired bacterial pneumonia Comment: cont Ceftriaxone and Azithro (2) Troponin I above reference range Comment: suspect demand ischemia, troponin at 0.04 x 2 Echo shows no change from prior , EF 55% (3) DM2 (diabetes mellitus, type 2) Comment: cont ISS , glipizide and NPH (4) CKD (chronic kidney disease) stage 3, GFR 30-59 ml/min Comment: due to DM, at baseline creatinine (5) Thrombocytopenia Comment: worsening of chronic, cont to monitor (6) Encephalopathy Comment: acute , resolved, suspect due to pneumonia (7) DVT prophylaxis Comment: HSQ Status and Disposition: inpatient
[2018-02-16] MEDS: NS 0.9% 1000 ML* 1,000 ML IV SCH (12:19)
[2018-02-16] MEDS ORDERED: Insulin NPH(*) 1 UNITS UNIT SUBCUT SCH (18:00)
[2018-02-16] MEDS ORDERED: cefTRIAXone VIAL(*) 1,000 MG in NS 0.9% 50 ML* 50 ML IVPB SCH (21:00)
[2018-02-16] MEDS: Azithromycin IV(*) 500 MG in NS 0.9% 250 ML* 250 ML IVPB SCH (22:13)
[2018-02-17] MEDS: Heparin VIAL(*) 5000 UNITS/ML VIAL (FIVE THOUSAND) SUBCUT SCH ×2 (06:53→12:13)
[2018-02-17] MEDS: Levothyroxine TAB* 88 MCG TAB PO SCH (06:55)
[2018-02-17] MEDS: CMCS Pantoprazole TAB (NF) 40 MG TAB PO SCH (06:55)
[2018-02-17 07:40] LABS: Hematocrit 35 % (42-52); Hemoglobin 11.9 g/dl (14.0-18.0); Mean Corpuscular HGB Conc 34 g/dl (31-36); Mean Corpuscular Hemoglobin 32 pg (27-31); Mean Corpuscular Volume 94 fL (80-94); Mean Platelet Volume 9.7 um3 (7.4-10.4); Platelet Count 62 10^3/ul (150-450); Red Blood Count 3.68 10^6/ul (4.0-5.4); Red Cell Distribution Width 15 % (10.5-15)
[2018-02-17 07:55] LABS: EGFR Non-African American 46.5 (>60)
[2018-02-17] MEDS: Insulin LISPRO* 1 UNITS UNIT SUBCUT SCH ×2 (08:00→12:13)
[2018-02-17 08:28] LABS: ABS Basophils 0 10^3/ul (0-0.2); ABS Eosinophils 0 10^3/ul (0-0.6); ABS Lymphocytes 1.4 10^3/ul (1.0-4.8); ABS Monocytes 2.7 10^3/ul (0-0.8); ABS Neutrophils 2.9 10^3/ul (1.5-7.7); ABS Nucleated RBC 0 10^3/ul; Nucleated Red Blood Cells % 0
[2018-02-17 08:31] LABS: Monocytes % 31 % (0-7)
[2018-02-17] MEDS: Losartan TAB* 25 MG PO SCH (10:01)
[2018-02-17] MEDS: Aspirin EC TAB* 81 MG TAB.EC PO SCH (10:01)
[2018-02-17] MEDS: Docusate CAP* 100 MG PO SCH (10:02)
[2018-02-17] MEDS: Metoprolol Tartrate TAB* 100 MG TAB PO SCH (10:02)
[2018-02-17] MEDS: guaiFENesin ER TAB 600 MG PO SCH (10:02)
[2018-02-17] MEDS: Clopidogrel TAB* 75 MG PO SCH (10:02)
[2018-02-17] MEDS: Atorvastatin* 10 MG TAB PO SCH (10:02)
[2018-02-17] MEDS: glipiZIDE TAB.XL* 5 MG PO SCH (10:02)
[2018-02-17] MEDS: Insulin NPH(*) 1 UNITS UNIT SUBCUT SCH (10:02)
[2018-02-17] MEDS: Oxybutynin XL TAB* 5 MG PO SCH (10:02)
[2018-02-17 13:07] VITALS: BP 150/64
[2018-02-17] MEDS ORDERED: Furosemide IV* 10 MG/ML 2 ML VIAL (20 MG) IV ONE (13:21)
[2018-02-17] MEDS ORDERED: Furosemide IV* 10 MG/ML 2 ML VIAL (20 MG) ONE (13:29)
--- NOTE | 2018-02-17 18:46 | DS ---
CC: Dr. Cerda* DISCHARGE SUMMARY: DATE OF ADMISSION: 02/15/18 DATE OF DISCHARGE: 02/17/18 PRIMARY CARE PROVIDER: Dr. Cerda. DISCHARGE DIAGNOSIS: Pneumonia. SECONDARY DIAGNOSES: 1. History of coronary artery disease. 2. History of chronic diastolic congestive heart failure. 3. History of atrial fibrillation. 4. History of chronic obstructive pulmonary disease, on nighttime O2. 5. History of deep vein thrombosis. 6. History of solitary kidney with chronic kidney disease stage 3. 7. Diabetes mellitus type 2. 8. Hypertension. 9. Dyslipidemia. 10. Gout. MEDICATIONS AT DISCHARGE: Include: 1. Aspirin 81 mg daily. 2. Azithromycin 250 mg daily for 3 days total. 3. Cefdinir 300 mg b.i.d. for 5 days total. 4. Plavix 75 mg daily. 5. Glipizide 10 mg daily. 6. Hydrochlorothiazide 25 mg daily. 7. Insulin NPH 50 units subcutaneously in the morning and 32 units at night. 8. Levothyroxine 88 mcg daily. 9. Cozaar 50 mg daily. 10. Metoprolol tartrate 100 mg daily. 11. Ditropan 15 mg daily. 12. Simvastatin 20 mg daily. LABORATORY DATA/STUDIES PERFORMED DURING HOSPITAL STAY: Included: On 02/17/18, white blood cell count was 7.0, hemoglobin of 11.9, hematocrit of 35, and platelets of 62. Sodium was 138, potassium 4.2, chloride 107, carbon dioxide 25, BUN 33, creatinine 1.45. The patient's troponin was 0.04 x2 during his hospital stay. The patient's transthoracic echocardiogram obtained on 02/16/18 showed EF 55% to 60% with the right ventricular and systolic function within normal limits. There were no significant changes comparing with echocardiogram from 2009. The patient's microbiology tests showed negative legionella antigen and Strep pneumo antigen. Sputum culture is pending and influenza was also negative. HOSPITALIZATION COURSE: Mr. Longo is a very nice 83-year-old male who presented to the hospital complaining of feeling very weak and tired. He was so weak that he was unable to walk during his admission. He also was noted to be confused. He is encephalopathic likely due to ongoing infection, resolved. He was admitted with a diagnosis of pneumonia, which was showed on his chest x- ray in the right lower lobe. The patient also has a history of cough for the past several weeks. He was placed on azithromycin and ceftriaxone with good results. By the time of discharge, he was still slightly dyspneic with exertion , but ambulated on the moody without any major problems. Please note that he received intravenous fluids during his hospital stay and he gained several pounds of weight. Due to that, he is going to receive a dose of intravenous Lasix 20 mg IV prior to his discharge for diuresis. He is going to be discharged with continuation of antibiotics for a total of 7 days of third generation cephalosporins and a total of 5 days of azithromycin. PHYSICAL EXAM AT THE TIME OF DISCHARGE: Blood pressure 150/64, heart rate of 69 and regular, respiratory rate 20, oxygen saturation 95% on room air, temperature 98.6. General: The patient is a very pleasant 83-year-old male who is in no acute distress. Alert, awake, and oriented x3. HEENT: Head: Atraumatic, normocephalic. Eyes: Pupils are equal, reactive to light and accommodation. Oropharynx is clear. Mucosa moist. Neck: Supple. No JVD. No bruits bilaterally. Cardiovascular: Regular rate and rhythm. No murmur. Respiratory: Crackles at bilateral bases, otherwise clear. Abdomen: Protuberant, soft, nontender. Bowel sounds are present in all 4 quadrants. Extremities: There is +1 nonpitting pedal edema. Pulses are +2 bilaterally. There is no clubbing, cyanosis. Neuro Evaluation: Speech clear. Cranial nerves II through XII grossly intact. Motor strength is 5/5 bilaterally. Please note the patient has thrombocytopenia during his hospital stay, which was compared with prior documented in September 2016. His platelets level at the time of discharge was 62. At discharge, the patient is recommended to follow up with his primary care provider in approximately 4 to 7 days. 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 I advised for him to stay off work for at least 4 to 5 days to fully recuperate prior to going back to work. Please note that this is a short summary of the patient's hospitalization. Please refer to further medical record for details. TIME SPENT: Approximately 40 minutes were spent on the patient's discharge. [id number]/[facility] #: [id number] [facility]Daniel
== END 2018-02-17 15:25 | disposition home or self-care (01) | DRG 871 ==
LOC: ED 16:38 → MED 21:06
PROVIDERS: ADMIT Hospitalist; ATTEND Internal Medicine
DX: A41.9 Sepsis, unspecified organism (principal); J18.9 Pneumonia, unspecified organism; G93.40 Encephalopathy, unspecified; I13.0 Hypertensive heart and chronic kidney disease with heart failure and stage 1 through stage 4 chronic kidney disease, or unspecified chronic kidney disease; I50.32 Chronic diastolic (congestive) heart failure; Q60.0 Renal agenesis, unilateral; J98.11 Atelectasis; I24.8 Other forms of acute ischemic heart disease; I25.10 Atherosclerotic heart disease of native coronary artery without angina pectoris; N18.3 Chronic kidney disease, stage 3 (moderate); I48.91 Unspecified atrial fibrillation; J44.9 Chronic obstructive pulmonary disease, unspecified; M10.9 Gout, unspecified; E78.5 Hyperlipidemia, unspecified; E11.22 Type 2 diabetes mellitus with diabetic chronic kidney disease; Z99.81 Dependence on supplemental oxygen; Z86.718 Personal history of other venous thrombosis and embolism; D69.6 Thrombocytopenia, unspecified; Z79.82 Long term (current) use of aspirin; Z79.4 Long term (current) use of insulin; Z79.899 Other long term (current) drug therapy; Z87.891 Personal history of nicotine dependence; Z82.49 Family history of ischemic heart disease and other diseases of the circulatory system; Z84.89 Family history of other specified conditions; E03.9 Hypothyroidism, unspecified; R74.8 Abnormal levels of other serum enzymes
CPT/HCPCS: 36415; 70450; 71045; 80048; 80053; 80307; 80320; 80329; 81003; 81015; 82140; 82550; 82565; 83036; 83605; 83735; 84443; 84484; 84520; 85025; 85060; 85610; 85730; 87040; 87070; 87086; 87205; 87502; 87899; 93005; 93306; 94760; 99284; A9270-GY; G0480; G8978-GP-CH; G8979-GP-CH; J0456; J0696; J1644; J1940; J3475

== ENCOUNTER 2018-04-07 11:26 | Emergency (ER) | payer MEDICARE, OTHER ==
[2018-04-07 12:16] LABS: Hematocrit 38 % (42-52); Hemoglobin 13.1 g/dl (14.0-18.0); Mean Corpuscular HGB Conc 34 g/dl (31-36); Mean Corpuscular Hemoglobin 32 pg (27-31); Mean Corpuscular Volume 94 fL (80-94); Mean Platelet Volume 9.7 um3 (7.4-10.4); Platelet Count 76 10^3/ul (150-450); Red Blood Count 4.07 10^6/ul (4.00-5.40); Red Cell Distribution Width 15 % (10.5-15); White Blood Count 3.7 10^3/ul (3.5-10.8)
[2018-04-07 12:30] LABS: Uric Acid 7.9 mg/dL (4.4-7.6)
[2018-04-07 12:43] LABS: ABS Basophils 0 10^3/ul (0-0.2); ABS Eosinophils 0 10^3/ul (0-0.6); ABS Lymphocytes 1.2 10^3/ul (1.0-4.8); ABS Monocytes 1.4 10^3/ul (0-0.8); ABS Neutrophils 1.1 10^3/ul (1.5-7.7)
[2018-04-07 12:45] LABS: ABS Basophils 0 10^3/ul (0-0.2); ABS Neutrophils 1.5 10^3/ul (1.5-7.7); Monocytes % 23 % (0-7)
[2018-04-07 13:19] LABS: Urine Appearance Clear; Urine Blood Negative (Negative); Urine Color Yellow; Urine Ketones Negative (Negative); Urine Protein Negative (Negative); Urine Specific Gravity 1.015 (1.010-1.030); Urine Urobilinogen Negative (Negative)
--- NOTE | 2018-04-07 13:25 | RAD ---
INDICATION: Pain and swelling. COMPARISON: None TECHNIQUE: Duplex interrogation of the Lowerextremity was performed. FINDINGS: Deep veins: The common femoral, great saphenous, profunda femoris, proximal, mid, and distal deep femoral, popliteal, posterior tibial, and peroneal veins are patent. There is normal compressibility, augmentation, and phasic flow. Superficial veins: There are no findings of superficial thrombophlebitis. Popliteal fossa:There is no evidence of a popliteal cyst. Soft tissues:There is edema about the lateral ankle. IMPRESSION: SOFT TISSUE EDEMA. NO EVIDENCE OF DEEP VENOUS THROMBOSIS
[2018-04-07 13:55] LABS: EGFR Non-African American 50.5 (>60)
[2018-04-07 14:14] VITALS: BP 150/61
--- NOTE | 2018-04-09 15:18 | ED ---
Miguel Desir Angela, scribed for Miguel Marie MD on 04/07/18 at 1152 . Lower Extremity - HPI Summary HPI Summary: This pt is an 83 y/o male [facility]/o right leg pain and redness for the past 2 days. Pt reports he noticed swelling on the right side of his leg yesterday. He denies any trauma or injury to his right leg. Pt denies heavy lifting. Denies SOB, chest pain, knee pain, abd pain, fever. Pt states he has been losing his voice over the past few months, this is chronic. PMHx includes diabetes, atrial fibrillation. He is anticoagulated on Plavix. - History of Current Complaint Chief Complaint: EDExtremityLower Stated Complaint: BUMP ON RT LEG Time Seen by Provider: 04/07/18 11:42 Hx Obtained From: Patient Mechanism Of Injury: Other - denies any trauma or injury Onset of Pain: Days Severity Currently: Moderate Pain Intensity: 7 Pain Scale Used: 0-10 Numeric Timing: Lasting Days Location: Is Discrete @ - right leg Associated Signs And Symptoms: Positive: Swelling, Bruising. Negative: Fever, Abdominal Pain, Knee Pain, Other - chest pain, SOB Aggravating Factor(s): Nothing Alleviating Factor(s): Nothing Able to Bear Weight: Yes - Allergies/Home Medications Allergies/Adverse Reactions: Allergies Allergy/AdvReac Type Severity Reaction Status Date / Time No Known Allergies Allergy Verified 04/07/18 11:31 Home Medications: Home Medications Ipratropium [place] 2 spray BOTH NARES TID PRN 04/07/18 [History Confirmed 04/07] Ranitidine TAB (NF) [Zantac TAB (NF)] 300 mg PO DAILY 04/07/18 [History Confirmed 04/07/18] PMH/Surg Hx/FS Hx/Imm Hx Endocrine/Hematology History: Reports: Hx Anticoagulant Therapy - plavix, Hx Diabetes, Hx Thyroid Disease Cardiovascular History: Reports: Hx Atrial Fibrillation Denies: Hx Hypercholesterolemia, Hx Hypertension Respiratory History: Reports: Hx Pneumonia, Other Respiratory Problems/ Disorders - HX OF PNEUMONIA Denies: Hx Asthma, Hx Chronic Obstructive Pulmonary Disease (COPD) History: Reports: Hx Chronic Renal Failure, Other Problems/Disorders - 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 Sensory History: Reports: Hx Contacts or Glasses Denies: Hx Deafness, Hx Hearing Aid Opthamlomology History: Reports: Hx Contacts or Glasses Neurological History: Reports: Hx Dementia - Surgical History Surgery Procedure, Year, and Place: kidney removal- donor Infectious Disease History: No Infectious Disease History: Denies: Traveled Outside the [place] in Last 30 Days - Family History Known Family History: Positive: Other - spina bifida in his son Negative: Cardiac Disease, Hypertension, Diabetes - Social History Alcohol Use: None Substance Use Type: Reports: None Hx Tobacco Use: Yes Smoking Status (MU): Former Smoker Have You Smoked in the Last Year: No Review of Systems Negative: Fever, Chills Negative: Chest Pain Negative: Shortness Of Breath Negative: Abdominal Pain Musculoskeletal: Other - right leg pain Positive: Edema - on right foot. Negative: Other - knee pain All Other Systems Reviewed And Are Negative: Yes Physical Exam - Summary Physical Exam Summary: VITAL SIGNS: Reviewed. GENERAL: Patient is a well-developed and nourished male who is lying comfortable in the stretcher. Patient is not in any acute respiratory distress. HEAD AND FACE: No signs of trauma. No ecchymosis, hematomas or skull depressions. No sinus tenderness. EYES: PERRLA, EOMI x 2, No injected conjunctiva, no nystagmus. EARS: Hearing grossly intact. Ear canals and tympanic membranes are within normal limits. MOUTH: Oropharynx within normal limits. NECK: Supple, trachea is midline, no adenopathy, no JVD, no carotid bruit, no c- spine tenderness, neck with full ROM. CHEST: Symmetric, no tenderness at palpation LUNGS: Clear to auscultation bilaterally. No wheezing or crackles. CVS: Regular rate and rhythm, S1 and S2 present, no murmurs or gallops appreciated. ABDOMEN: Soft, non-tender. No signs of distention. No rebound no guarding, and no masses palpated. Bowel sounds are normal. EXTREMITIES: FROM in all major joints, no cyanosis or clubbing. RLE swelling mostly on the right lateral malleolus with some erythema. There is some blue discoloration on the right foot. NEURO: Alert and oriented x 3. No acute neurological deficits. Speech is normal and follows commands. SKIN: Dry and warm Triage Information Reviewed: Yes Vital Signs On Initial Exam: Initial Vitals Temp Pulse Resp BP Pulse Ox 97.3 F 73 22 152/123 95 04/07/18 11:29 04/07/18 11:29 04/07/18 11:29 04/07/18 11:29 04/07/18 11:29 Vital Signs Reviewed: Yes Diagnostics - Vital Signs Vital Signs Temp Pulse Resp BP Pulse Ox 04/07/18 11:29 97.3 F 73 22 152/123 95 - Laboratory Result Diagrams: 04/07/18 12:03 04/07/18 12:03 Lab Statement: Any lab studies that have been ordered have been reviewed, and results considered in the medical decision making process. - Ultrasound No standard instances Ultrasound Interpretation: No Acute Changes - Right lower extremity US IMPRESSION: Soft tissue edema. No evidence of deep venous thrombosis. Dr. Marie has reviewed this radiology. Ultrasound Interpretation Completed By: Radiologist Lower Extremity Course/Dx - Course Assessment/Plan: Pt is an 83 y/o male, on Plavix, who presents with right leg pain and redness for the past 2 days. Pt reports he noticed swelling on the right side of his leg yesterday. He denies any trauma or injury to his right leg. Pt denies heavy lifting. Denies SOB, chest pain, knee pain, abd pain, fever. Test results without any significant abnormalities. The pt does not have an increase in WBC and the CRP is only 7.0. Therefore, I dont believe the pt has cellulitis. The ultrasound of the right lower extremity shows no DVT. I think the pt just has swelling from a small contusion on the leg. The pt does not have any tenderness and the pulses are normal. Therefore pt will be discharged home with follow up from PCP. I discussed all the findings and test results with the patient. All questions were answered to patient satisfaction. There were no further complaints or concerns. He was advised to elevate his leg and return to the ED if he develops any fever or worsening symptoms. Pt is hemodynamically stable, alert and oriented x3. - Diagnoses Provider Diagnoses: Pain and swelling of right lower extremity Discharge - Sign-Out/Discharge Documenting (check all that apply): Discharge/Admit/Transfer - Discharge - Discharge Plan Condition: Stable Disposition: HOME Patient Education Materials: Leg Edema (ED), Leg Pain (ED) Referrals: Robin Cerda MD [Primary Care Provider] - 3 Days Additional Instructions: Please follow up with your primary care provider. RETURN TO THE ED FOR ANY NEW OR WORSENING SYMPTOMS. The documentation as recorded by the Miguel goodrich Angela accurately reflects the service I personally performed and the decisions made by , Miguel Marie MD.
== END 2018-04-07 14:12 | disposition home or self-care (01) ==
LOC: ED 11:26
DX: M79.604 Pain in right leg (principal); R60.0 Localized edema; E11.9 Type 2 diabetes mellitus without complications; E07.9 Disorder of thyroid, unspecified; I48.91 Unspecified atrial fibrillation; Z79.01 Long term (current) use of anticoagulants; E11.22 Type 2 diabetes mellitus with diabetic chronic kidney disease; N18.9 Chronic kidney disease, unspecified; F03.90 Unspecified dementia, unspecified severity, without behavioral disturbance, psychotic disturbance, mood disturbance, and anxiety; Z87.891 Personal history of nicotine dependence; Z82.79 Family history of other congenital malformations, deformations and chromosomal abnormalities
CPT/HCPCS: 36415; 80053; 81003; 83605; 84550; 85025; 85060; 85652; 86140; 99282

== ENCOUNTER → 2018-08-09 | Emergency (ER) | payer MEDICARE, OTHER ==
[~2018-08-09] MED LIST: ValACYclovir (*) 1 GM TAB PO ONE
--- NOTE | 2018-08-09 10:12 | ED ---
Skin Complaint - HPI Summary HPI Summary: Patient presents with acute onset itching and rash that started in the middle of the night while he was sleeping. He reports he developed rash over her neck , chest, dorsal forearms and proximal thighs. His chest rash has disappeared over the course of the morning w/o intervention. He also reports his thighs were blistered up like " egg cartons" (after further conversation, this sounds like urticaria, not pemphigus/vesicles) - this is also improving. He has 2 areas of raised, dark textured moles over his left scapular region that have been itching over the past 2 days as well. He has scratched them to the point of bleeding (NOTE: thrombocytopenia is being w/u by Dr. Aleman - just had bone bx - results pending). Denies difficulty breathing, swallowing, facial swelling , lip tingling, coughing, fever, chills, headache, neck stiffness, joint aches, nausea, vomiting, diarrhea, chest pain, lower extremity swelling. Overall, feels well - just wondering what caused rash and itching. Sleeps w/ and she is w/o sx. He denies any change in his environmental contacts such as detergents, cosmetics, foods/bevs, plant life, animal life, etc however his TSH was elevated recently and so Dr. Francisco increased his levothyroxine from 88mcg to 100mcg. He also takes a diurectic and they recently turned on the heat but reports the highest they put it is 65 degrees Fahrenheit and she keeps a window cracked. He has not been showering any longer or more frequently than usual. He does like to work in the garden but hasn't been out there in 1+ weeks d/t recent rain. Of note, he only has one kidney as he donated his other one to his son. His labs as of late appear to reveal mild kidney failure however they are steady and actually slightly better at last draw one week ago. No urinary changes, no ab pain and admits she's been eating and drinking well without difficulty. - History of Current Complaint Chief Complaint: EDRashSkinAbscess Time Seen by Provider: 08/09/18 09:18 Stated Complaint: ALLERGIC REACTION Hx Obtained From: Patient, Family/Financial Reserve Clerk - Pain Intensity: 2 - Additional Pertinent History Primary Care Physician: [facility] - Allergy/Home Medications Allergies/Adverse Reactions: Allergies Allergy/AdvReac Type Severity Reaction Status Date / Time No Known Allergies Allergy Verified 08/09/18 08:41 PMH/Surg Hx/FS Hx/Imm Hx Previously Healthy: Yes Endocrine/Hematology History: Reports: Hx Anticoagulant Therapy - plavix - stents, Hx Diabetes, Hx Thyroid Disease - on medication Cardiovascular History: Reports: Hx Atrial Fibrillation, Hx Coronary Artery Disease - stents Denies: Hx Hypercholesterolemia, Hx Hypertension, Hx Myocardial Infarction, Hx Rheumatic Fever, Hx Valvular Heart Disease Respiratory History: Reports: Hx Pneumonia, Other Respiratory Problems/ Disorders - HX OF PNEUMONIA Denies: Hx Asthma, Hx Chronic Obstructive Pulmonary Disease (COPD) History: Reports: Hx Chronic Renal Failure, Other Problems/Disorders - 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 Sensory History: Reports: Hx Contacts or Glasses Denies: Hx Deafness, Hx Hearing Aid Opthamlomology History: Reports: Hx Contacts or Glasses Neurological History: Reports: Hx Dementia - Surgical History Surgery Procedure, Year, and Place: kidney removal- donor Infectious Disease History: No Infectious Disease History: Denies: Traveled Outside the [place] in Last 30 Days - Family History Known Family History: Positive: Other - spina bifida in his son Negative: Cardiac Disease, Hypertension, Diabetes - Social History Occupation: Retired - as of March from [employer] Lives: With Family - Alcohol Use: None Hx Substance Use: No Substance Use Type: Reports: None Hx Tobacco Use: Yes - not currently Smoking Status (MU): Former Smoker Have You Smoked in the Last Year: No Review of Systems Constitutional: Negative Negative: Fever, Chills, Fatigue Eyes: Negative Negative: Photophobia, Blurred Vision, Diplopia, Drainage, Erythema ENT: Negative Cardiovascular: Negative Respiratory: Negative Gastrointestinal: Negative Genitourinary: Negative Musculoskeletal: Negative Positive: Rash Neurological: Negative Psychological: Normal All Other Systems Reviewed And Are Negative: Yes Physical Exam Triage Information Reviewed: Yes Vital Signs On Initial Exam: Initial Vitals Temp Pulse Resp BP Pulse Ox 96.2 F 77 16 200/156 95 08/09/18 08:41 08/09/18 08:41 08/09/18 08:41 08/09/18 08:41 08/09/18 08:41 Vital Signs Reviewed: Yes Appearance: Positive: Well-Appearing, No Pain Distress, Obese Skin: Positive: Warm, Skin Color Reflects Adequate Perfusion, Dry - diffuse mild maculopapular erythematous rash over mid thighs w/ trever delineation of rash from mid thigh to proximal thigh (no rash proximally and skin is pale, no sun exposure) - the rash here appears to be about 4cm in width around the thighs B/L - no trever rash distal to this; few dime sized erythematous, raised/ hypertrophied over dorsal forearms; diffuse urticarial rash over neck Head/Face: Positive: Normal Head/Face Inspection Eyes: Positive: Normal, EOMI, Conjunctiva Clear - anicteric sclera ENT: Positive: Hearing grossly normal, Pharynx normal - oral mucosa dry (pt reports this is a chronic condition). Negative: Nasal congestion Dental: Positive: Other - dentures in place Neck: Positive: Supple Respiratory/Lung Sounds: Positive: Clear to Auscultation, Breath Sounds Present. Negative: Rales, Rhonchi, Wheezes Cardiovascular: Positive: Normal, RRR, S1, S2. Negative: Leg Edema Left, Leg Edema Right Abdomen Description: Positive: Nontender Bowel Sounds: Positive: Present Musculoskeletal: Positive: Normal, Strength/ROM Intact Neurological: Positive: Normal, Sensory/Motor Intact, Alert, Oriented to Person Place, Time, CN Intact II-III Psychiatric: Positive: Normal - pleasant, in good spirits, do not observe itching or agitation Diagnostics - Vital Signs Vital Signs Temp Pulse Resp BP Pulse Ox 08/09/18 08:41 96.2 F 77 16 200/156 95 - Laboratory Result Diagrams: 08/09/18 10:09 08/09/18 10:09 Lab Statement: Any lab studies that have been ordered have been reviewed, and results considered in the medical decision making process. Course/Dx - Course Course Of Treatment: During pt's course of stay, he reports he went into the bathroom here in ED and sees a new rash over Rt flank - his reported a "blotch" here last night and this area has been pruritic as well but denies pain , burning, blisters. This rash which is slightly raised but linear and wraps around flank is dark red/almost faded purple and w/o vesicles, fever, leakage - NTTP; rash here is larger now and covers dermatome T11/12 w/o crossing midline. Pt has a h/o shingles. Will provide 1st valtrex here today and pt will diamond picker the remainder at [facility]. Advised very close f/u w/ PCP in 1-2 days to monitor rash as pt's labs are also abnormal re: WBC's, specifically monocytes. Also relayed his TSH is elevated from last week but his FT4 is WNL. COuld have hypothyroidism contributing to skin dryness and diffuse rash/itching but with focal rash over Rt flank, will tx as shingles. Explained to pt that thyroid lab changes can take weeks before improving with med change. Pt would like w/u fwd' d to '[facility] Law Zaida and Ash. note: Creatinine Clearance 54 based on Cockcroft-Gault calculation - okay to proceed w/ full dose valtrex. Discussed w / Dr. Ewing. - Diagnoses Provider Diagnoses: Rash Discharge - Sign-Out/Discharge Documenting (check all that apply): Patient Departure - Discharge Plan Condition: Stable Disposition: HOME Prescriptions: ValACYclovir (*) [Valtrex 1 GM(*)] 1 gm PO TID #20 tab Patient Education Materials: Shingles (ED), Urticaria (ED) Referrals: Robin Cerda MD [Primary Care Provider] - Additional Instructions: The definitive cause of your diffuse rash was not identified today however your thyroid level is elevated from previous visit. This can indicate hypothyroidism which can increase your risk of dry skin causing itching which you are presenting with today. It is important that you follow up with Dr. Francisco regarding your thyroid condition and recent medication change. If you sign for your paperwork to be released to Dr. Francisco, he will receive it prior to your next follow-up appointment. Continue your levothyroxine as directed. In the meantime , you may try a sensitive skin moisturizer such as Eucerin, Aveeno, etc. Reduced the number of showers/bathes as well as length and temperature of water to reduce risk of increased skin dryness. Avoid cologne, scented lotions, etc. which can cause further worsening of itching. The rash on your right flank however may be shingles. An antiviral medication to treat this condition (valtrex) has been prescribed for you today. You may contract shingles more than once in your lifetime. You received your first dose here in the emergency department however it is very important that you diamond picker the rest of your prescription and continue to take it as directed until completed. It is very important that you follow up with your primary care provider in the next 1-2 days for recheck of this rash as your immune system may be compromised. Your monocytes were abnormal today and Dr. Cerda and Dr. Aleman may review these for further evaluation. Again, if you sign your paperwork to be released to Drs. Francisco and Ash, they will receive results prior to follow-up. CALL TOMORROW TO SCHEDULE AN APPOINTMENT WITH DR. CERDA. *If you feel worse in the meantime, return to the emergency department. - Billing Disposition and Condition Condition: STABLE Disposition: Home
[2018-08-09 10:17] LABS: Hematocrit 40 % (42-52); Hemoglobin 13.6 g/dl (14.0-18.0); Mean Corpuscular HGB Conc 34 g/dl (31-36); Mean Corpuscular Hemoglobin 33 pg (27-31); Mean Corpuscular Volume 96 fL (80-94); Mean Platelet Volume 10.2 um3 (7.4-10.4); Platelet Count 72 10^3/ul (150-450); Red Blood Count 4.15 10^6/ul (4.00-5.40); Red Cell Distribution Width 15 % (10.5-15); White Blood Count 4.7 10^3/ul (3.5-10.8)
[2018-08-09 10:23] LABS: INR 0.99 (0.77-1.02)
[2018-08-09 10:33] LABS: EGFR Non-African American 39.5 (>60)
[2018-08-09 10:38] LABS: ABS Basophils 0 10^3/ul (0-0.2); ABS Eosinophils 0 10^3/ul (0-0.6); ABS Lymphocytes 1.1 10^3/ul (1.0-4.8); ABS Monocytes 1.8 10^3/ul (0-0.8); ABS Neutrophils 1.8 10^3/ul (1.5-7.7)
[2018-08-09 10:43] LABS: ABS Basophils 0 10^3/ul (0-0.2); Monocytes % 34 % (0-7)
[2018-08-09 11:29] VITALS: BP 176/74
== END | disposition home or self-care (01) ==
LOC: ED 08:39
DX: R21 Rash and other nonspecific skin eruption (principal); Z79.02 Long term (current) use of antithrombotics/antiplatelets; I48.91 Unspecified atrial fibrillation; I25.10 Atherosclerotic heart disease of native coronary artery without angina pectoris; Z87.891 Personal history of nicotine dependence; F03.90 Unspecified dementia, unspecified severity, without behavioral disturbance, psychotic disturbance, mood disturbance, and anxiety
CPT/HCPCS: 36415; 80053; 84439; 84443; 85025; 85060; 85610; 85730; 99282; A9270-GY